=== PATIENT | female | born 1990 | race Asian ===

== ENCOUNTER → 2020-05-05 | Outpatient (CLI) | payer OTHER ==
[2020-05-05 12:21] LABS: HCT (SEDRATE) 39.2 % (34.6-47.8)
[2020-05-07 16:52] LABS: ANA SCREEN NEGATIVE (Negative)
== END | disposition home or self-care (01) ==
LOC: LAB 11:41
PROVIDERS: ATTEND Internal Medicine Cardiovascular Disease
DX: Z00.01 Encounter for general adult medical examination with abnormal findings (principal); Z11.3 Encounter for screening for infections with a predominantly sexual mode of transmission; Z13.1 Encounter for screening for diabetes mellitus; N92.6 Irregular menstruation, unspecified; F41.9 Anxiety disorder, unspecified; R07.9 Chest pain, unspecified; R73.01 Impaired fasting glucose; R73.02 Impaired glucose tolerance (oral)
CPT/HCPCS: 36415; 85651; 86038